=== PATIENT | female | born 1950 | race Caucasian/White ===

== ENCOUNTER 2023-08-10 17:44 | Emergency (ER) | payer OTHER ==
[~2023-08-10] VITALS: Ht 160 cm; Wt 60.8 kg
[2023-08-10] MEDS ORDERED: OLMSRTN-AMLDPN1 EAC1 PO (18:46)
[2023-08-10] MEDS ORDERED: ZOCOR20 MG PO (18:47)
[2023-08-10 20:28] LABS: HEMATOCRIT 37.3 % (36.0-45.00); HEMOGLOBIN 13.2 g/dL (12.0-15.00); MEAN CELL VOLUME 85.9 fL (80.00-100.00); MEAN CORPUSCULAR HEMOGLOBIN 30.4 pg (27.00-32.0); MEAN CORPUSCULAR HGB CONC 35.4 g/dl (32.0-36.0); PLATELET COUNT 320 K/uL (150-450); RED BLOOD COUNT 4.34 M/uL (4.00-6.00); RED CELL DISTRIBUTION WIDTH 13.9 % (11.5-14.5)
[2023-08-10 20:47] LABS: PARTIAL THROMBOPLASTIN TIME 33.8 SECONDS (22.0-34.0); PROTHROMBIN TIME 10.5 SECONDS (9.0-11.5)
[2023-08-10 20:52] LABS: CALCIUM 9.1 mg/dL (8.5-10.1); CREATININE SERUM 1.15 mg/dL (0.55-1.02); GFR 46.25; POTASSIUM 3.29 mEq/L (3.5-5.1)
== END 2023-08-10 21:30 | disposition home or self-care (01) ==
LOC: ER 17:44
PROVIDERS: General Practice
DX: R55 Syncope and collapse (principal); Z88.6 Allergy status to analgesic agent; Z88.8 Allergy status to other drugs, medicaments and biological substances